=== PATIENT | female | born 1940 | race Caucasian/White ===

== ENCOUNTER 2016-08-30 18:50 | Observation (INO) | payer BC ==
--- NOTE | 2016-08-30 19:31 | EDPHY ---
H & P Time Seen by Provider: 08/30/16 19:30 HPI/ROS: Chief complaint. Fever, tachy HPI. 76-year-old female sore throat with chills and fever for 1 day. Seen at [facility] [place] apparently had a negative flu swab. Sent here because of continued tachycardia. Patient's only complaint is chills and sore throat. No known exposures. No cough. No abdominal pain vomiting diarrhea or urinary symptoms. ROS Constitutional. Fever Eyes. no problems with vision ENT. Sore throat Cardiovascular. no chest pain Respiratory. no shortness of breath, no cough Abdominal. no abdominal pain, no nausea/vomiting, no diarrhea . no problems urinating MS. no calf pain/swelling, no neck/back pain, no joint pain Skin. no rash Lymph. no swollen glands Neuro. no headache, no dizziness, no difficulty walking or with speech Past Medical/Surgical History: Past medical history is significant for left hip repair, melanoma, parathyroid disease, hysterectomy Social History: , nonsmoker, no alcohol Smoking Status: Never smoked Physical Exam: General Appearance: Alert well-developed female mild distress vital signs show temp 37.2degrees, heart rate 124 Eyes: Pupils equal and round no pallor or injection. ENT, tympanic membranes are normal. Pharynx injected without exudate. Respiratory: There are no retractions, lungs are clear to auscultation. Cardiovascular: Regular rate and rhythm. Gastrointestinal: Abdomen is soft and nontender, no masses, bowel sounds normal. Neurological: Awake and alert, sensory and motor exams grossly normal. Skin: Warm and dry, no rashes. Musculoskeletal: Neck is supple nontender. Extremities symmetrical, full range of motion. Psychiatric: Patient is oriented X 3, there is no agitation. Constitutional: Initial Vital Signs Temperature (C) 37.2 C 08/30/16 19:03 Heart Rate 124 H 08/30/16 19:03 Respiratory Rate 18 08/30/16 19:03 Blood Pressure 149/99 H 08/30/16 19:03 O2 Sat (%) 94 08/30/16 19:03 O2 Delivery Mode Room Air Allergies/Adverse Reactions: Penicillins Allergy (Verified 08/30/16 19:03) Home Medications: Medication Instructions Recorded NK [No Known Home Meds] 08/30/16 Medical Decision Making - Diagnostics Imaging: Chest x-ray shows no evidence for pneumonia. Procedures: IV normal saline. Tylenol for fever. Sepsis workup ED Course/Re-evaluation: Serum lactate is positive. Severe sepsis is declared now. The patient is given fluids. Re-evaluation the patient is stable. She and I discussed imaging, lab results treatment plan including recommendation for admission. Patient expresses understanding and agreement The patient on re-evaluation at 9:30 p.m. still has a heart rate of about 102- 103 after 1 L of saline. I have consulted and discussed the case with Dr. Santamaria, hospitalist, who agrees to the admission Differential Diagnosis: I suspect that this is viral syndrome. She apparently has a negative flu at the [facility] [place] and negative strep screen here. Her only complaint really is sore throat and some cough. She does not have pneumonia. Her elevated lactate maybe from dehydration. We will admit her and hydrate her and antibiotics pending blood cultures. - Data Points Laboratory Results: Laboratory Results 08/30/16 21:15 08/30/16 20:05 08/30/16 08/30/16 08/30/16 Unknown 21:15 21:15 WBC 11.68 10^3/uL H 10^3/uL (3.80-9.50) RBC 4.72 10^6/uL 10^6/uL (4.18-5.33) Hgb 12.5 g/dL L g/dL (12.6-16.3) Hct 38.5 % % (38.0-47.0) MCV 81.6 fL fL (81.5-99.8) MCH 26.5 pg L pg (27.9-34.1) MCHC 32.5 g/dL g/dL (32.4-36.7) RDW 14.7 % % (11.5-15.2) Plt Count 194 10^3/uL 10^3/uL (150-400) MPV 13.5 fL H fL (8.7-11.7) Neut % (Auto) 82.6 % H % (39.3-74.2) Lymph % (Auto) 9.2 % L % (15.0-45.0) Benson % (Auto) 6.8 % % (4.5-13.0) Eos % (Auto) 0.0 % L % (0.6-7.6) Baso % (Auto) 0.5 % % (0.3-1.7) Nucleat RBC Rel Count 0.0 % % (0.0-0.2) Absolute Neuts (auto) 9.64 10^3/uL H 10^3/uL (1.70-6.50) Absolute Lymphs (auto) 1.07 10^3/uL 10^3/uL (1.00-3.00) Absolute Monos (auto) 0.80 10^3/uL 10^3/uL (0.30-0.80) Absolute Eos (auto) 0.00 10^3/uL L 10^3/uL (0.03-0.40) Absolute Basos (auto) 0.06 10^3/uL 10^3/uL (0.02-0.10) Absolute Nucleated RBC 0.00 10^3/uL 10^3/uL (0-0.01) Immature Gran % 0.9 % % (0.0-1.1) Immature Gran # 0.11 10^3/uL H 10^3/uL (0.00-0.10) PT Pending INR Pending APTT Pending VBG Lactic Acid Sodium Potassium Chloride Carbon Dioxide Anion Gap BUN Creatinine Estimated GFR Glucose Calcium Total Bilirubin Group A Strep Screen Group A Strep DNA Pending 08/30/16 08/30/16 08/30/16 20:39 20:05 20:05 WBC RBC Hgb Hct MCV MCH MCHC RDW Plt Count MPV Neut % (Auto) Lymph % (Auto) Benson % (Auto) Eos % (Auto) Baso % (Auto) Nucleat RBC Rel Count Absolute Neuts (auto) Absolute Lymphs (auto) Absolute Monos (auto) Absolute Eos (auto) Absolute Basos (auto) Absolute Nucleated RBC Immature Gran % Immature Gran # PT INR APTT VBG Lactic Acid 2.5 mmol/L H mmol/L (0.7-2.1) Sodium 135 mEq/L mEq/L (134-144) Potassium 4.5 mEq/L mEq/L (3.5-5.2) Chloride 104 mEq/L mEq/L (97-110) Carbon Dioxide 21 mEq/l L mEq/l (22-31) Anion Gap 10 mEq/L mEq/L (8-16) BUN 12 mg/dL mg/dL (7-23) Creatinine 0.6 mg/dL mg/dL (0.6-1.0) Estimated GFR > 60 Glucose 116 mg/dL H mg/dL (70-100) Calcium 9.8 mg/dL mg/dL (8.5-10.4) Total Bilirubin 0.8 mg/dL mg/dL (0.1-1.4) Group A Strep Screen NEGATIVE (NEGATIVE) Group A Strep DNA Medications Given: Discontinued Medications Acetaminophen (Tylenol) 1,000 mg PO EDNOW ONE Stop: 08/30/16 19:46 Last Admin: 08/30/16 20:14 Dose: 1,000 mg Sodium Chloride (Ns) 1,000 mls @ 0 mls/hr IV ONCE ONE PRN Reason: Wide Open Stop: 08/30/16 20:15 Last Admin: 08/30/16 20:16 Dose: 1,000 mls Departure - Departure Disposition: Home, Routine, Self-Care Clinical Impression: Acute pharyngitis Qualifiers: Pharyngitis/tonsillitis etiology: unspecified etiology Qualified Code(s): J02.9 - Acute pharyngitis, unspecified Condition: Good Referrals: [facility] [Other] - As per Instructions
[2016-08-30] MEDS ORDERED: ACETAMINOPHEN 500 MG TAB PO ONE (19:45)
[2016-08-30] MEDS ORDERED: NS 1,000 ML IV ONE (20:14)
[2016-08-30 20:36] LABS: ANION GAP 10 mEq/L (8-16); BILIRUBIN,TOTAL 0.8 mg/dL (0.1-1.4); CALCIUM 9.8 mg/dL (8.5-10.4); CARBON DIOXIDE 21 mEq/l (22-31); CHLORIDE 104 mEq/L (97-110); CREATININE 0.6 mg/dL (0.6-1.0); GLOMERULAR FILTRATION RATE > 60; GLUCOSE 116 mg/dL (70-100); POTASSIUM 4.5 mEq/L (3.5-5.2); SODIUM 135 mEq/L (134-144)
[2016-08-30] MEDS ORDERED: NS 1,000 ML BAG *FOR SEPSIS ORDER SET ONLY IV ONE (21:07)
[2016-08-30 21:16] LABS: LACGHOST ORDER
[2016-08-30 21:28] LABS: % IMMATURE GRANULYOCYTES 0.9 % (0.0-1.1); ABSOLUTE IMMATURE GRANULOCYTES 0.11 10^3/uL (0.00-0.10); ADD DIFF? NO; ADD MORPH? NO; ADD SCAN? NO; ATYPICAL LYMPHOCYTE FLAG 10 (0-99); FRAGMENT RBC FLAG 0 (0-99); HEMATOCRIT 38.5 % (38.0-47.0); HEMOGLOBIN 12.5 g/dL (12.6-16.3); LEFT SHIFT FLG 0 (0-99); LIPEMIA HEMOLYSIS FLAG 80 (0-99); MEAN CELL HEMOGLOBIN 26.5 pg (27.9-34.1); MEAN CELL HEMOGLOBIN CONCENTR. 32.5 g/dL (32.4-36.7); MEAN CELL VOLUME 81.6 fL (81.5-99.8); MEAN PLATELET VOLUME 13.5 fL (8.7-11.7); PLATELET CLUMPS FLAG 0 (0-99); PLATELET COUNT 194 10^3/uL (150-400); RED BLOOD CELL COUNT 4.72 10^6/uL (4.18-5.33); RED CELL DISTRIBUTION WIDTH 14.7 % (11.5-15.2)
[2016-08-30 21:35] LABS: INR 1.05 (0.83-1.16); PROTIME(PATIENT) 13.6 SEC (12.0-15.0)
[2016-08-30 21:36] LABS: APTT 30.8 SEC (23.0-38.0)
[2016-08-30] MEDS ORDERED: ONDANSETRON 4 MG/2 ML VIAL IVP PRN (22:08)
[2016-08-30] MEDS ORDERED: ONDANSETRON DISINTEGRATING 4 MG TAB PO PRN (22:08)
[2016-08-30] MEDS ORDERED: ACETAMINOPHEN 325 MG TAB PO PRN (22:08)
[2016-08-30] MEDS ORDERED: NS 1,000 ML IV SCH (22:15)
[2016-08-30] MEDS ORDERED: Azelastine/Fluticasone [Dymista Nasal Spray] NS PRN (22:20)
--- NOTE | 2016-08-30 22:20 | PDGENHP ---
History and Physical - Chief Complaint fever, sore throat, tachycardia - History of Present Illness 76 yo female with no other past medical history presents to ED from urgent care with sore throat, fever and tachycardia. Her sore throat started yesterday with fevers to 102. She went to [facility] urgent care today where a flu swab was negative. Given her tachycardia, she was sent to the ED. She denies CP or SOB. No pleuritic symptoms. No cough or wheezing. She only complains of sore throat and some nasal symptoms. No sick contacts. She traveled here from [place] in Jun 2016 to help care for her son's twins who were recently born. She denies any past medical history. She had abnormal labs in the ED with persistent tachycardia and is admitted to the [facility] for further evaluation. History Information - Allergies/Home Medication List Allergies/Adverse Reactions: Penicillins Allergy (Verified 08/30/16 19:03) Home Medications: Azelastine/Fluticasone [Dymista Nasal [place]] 1 spray NS DAILY PRN 08/30/16 [ Last Taken 08/28/16] Calcium Carbonate [Tums 500MG (*)] 500 mg PO BID 08/30/16 [Last Taken 08/27/16] Cholecalciferol Vit D3 [Vitamin D3 (*)] 1,000 units PO BID 08/30/16 [Last Taken 08/27/16] Naproxen Sodium [Aleve 220 MG (*)] 220 mg PO DAILY PRN 08/30/16 [Last Taken ] I have personally reviewed and updated: family history, medical history, social history, surgical history - Past Medical History no pertinent PMH Additional medical history: melanoma right thumb 2007 - Surgical History Additional surgical history: parathyroidectomy, achilles tendon surgery, hip surgery, right thumb melanoma resection in 2007. 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 Speaks 4 languages (Armenian, Rwandan, Portuguese, Lithuanian). Came out to [place] from [place] to help care for her twin grandbabies Review of Systems ROS: 10pt was reviewed & negative except for what was stated in HPI & below Physical Exam Temp Pulse Resp BP Pulse Ox 37.2 C 106 H 18 135/72 H 92 08/30/16 19:03 08/30/16 21:10 08/30/16 21:10 08/30/16 21:10 08/30/16 21:10 Constitutional: no apparent distress Eyes: PERRL, other (mild posterior oropharynx erythema, no exudate or significant tonsillar hypertrophy) Ears, Nose, Mouth, Throat: moist mucous membranes, other (no cervical LAD) Cardiovascular: no murmur, rub, or gallop, tachycardia Respiratory: no respiratory distress, clear to auscultation Gastrointestinal: normoactive bowel sounds, soft, non-tender abdomen Skin: warm Musculoskeletal: full muscle strength Neurologic: AAOx3 Psychiatric: interacting appropriately Lab Data & Imaging Review 08/30/16 21:15 08/30/16 20:05 WBC 11.68 10^3/uL (3.80-9.50) H 08/30/16 21:15 RBC 4.72 10^6/uL (4.18-5.33) 08/30/16 21:15 Hgb 12.5 g/dL (12.6-16.3) L 08/30/16 21:15 Hct 38.5 % (38.0-47.0) 08/30/16 21:15 MCV 81.6 fL (81.5-99.8) 08/30/16 21:15 MCH 26.5 pg (27.9-34.1) L 08/30/16 21:15 MCHC 32.5 g/dL (32.4-36.7) 08/30/16 21:15 RDW 14.7 % (11.5-15.2) 08/30/16 21:15 Plt Count 194 10^3/uL (150-400) 08/30/16 21:15 MPV 13.5 fL (8.7-11.7) H 08/30/16 21:15 Neut % (Auto) 82.6 % (39.3-74.2) H 08/30/16 21:15 Lymph % (Auto) 9.2 % (15.0-45.0) L 08/30/16 21:15 Story % (Auto) 6.8 % (4.5-13.0) 08/30/16 21:15 Eos % (Auto) 0.0 % (0.6-7.6) L 08/30/16 21:15 Baso % (Auto) 0.5 % (0.3-1.7) 08/30/16 21:15 Nucleat RBC Rel Count 0.0 % (0.0-0.2) 08/30/16 21:15 Absolute Neuts (auto) 9.64 10^3/uL (1.70-6.50) H 08/30/16 21:15 Absolute Lymphs (auto) 1.07 10^3/uL (1.00-3.00) 08/30/16 21:15 Absolute Monos (auto) 0.80 10^3/uL (0.30-0.80) 08/30/16 21:15 Absolute Eos (auto) 0.00 10^3/uL (0.03-0.40) L 08/30/16 21:15 Absolute Basos (auto) 0.06 10^3/uL (0.02-0.10) 08/30/16 21:15 Absolute Nucleated RBC 0.00 10^3/uL (0-0.01) 08/30/16 21:15 Immature Gran % 0.9 % (0.0-1.1) 08/30/16 21:15 Immature Gran # 0.11 10^3/uL (0.00-0.10) H 08/30/16 21:15 PT 13.6 SEC (12.0-15.0) 08/30/16 21:15 INR 1.05 (0.83-1.16) 08/30/16 21:15 APTT 30.8 SEC (23.0-38.0) 08/30/16 21:15 VBG Lactic Acid 2.5 mmol/L (0.7-2.1) H 08/30/16 20:05 Sodium 135 mEq/L (134-144) 08/30/16 20:05 Potassium 4.5 mEq/L (3.5-5.2) 08/30/16 20:05 Chloride 104 mEq/L (97-110) 08/30/16 20:05 Carbon Dioxide 21 mEq/l (22-31) L 08/30/16 20:05 Anion Gap 10 mEq/L (8-16) 08/30/16 20:05 BUN 12 mg/dL (7-23) 08/30/16 20:05 Creatinine 0.6 mg/dL (0.6-1.0) 08/30/16 20:05 Estimated GFR > 60 08/30/16 20:05 Glucose 116 mg/dL (70-100) H 08/30/16 20:05 Calcium 9.8 mg/dL (8.5-10.4) 08/30/16 20:05 Total Bilirubin 0.8 mg/dL (0.1-1.4) 08/30/16 20:05 Group A Strep Screen NEGATIVE (NEGATIVE) 08/30/16 20:39 Assessment & Plan Assessment: Pharyngitis with reported fevers - Afebrile here. Suspect viral URI. Strep neg. She reportedly had a negative flu at [facility], but no data to confirm. Will check flu PCR here to be sure. Supportive care, anti-pyretics prn, gentle IVF' s. Tachycardia with mild hypoxemia - HR 124 on arrival, appears c/w sinus on monitor. No CP or SOB, but O2 sats are 90-93%. Well score is 1.5 for tachycardia, low risk, but need to r/o PE given her recent travel from [place]. Will start with D dimer and if positive, pursue CTPA. IVF's for hydration to see if HR improves. Elevated lactate - mild elevation. Despite her elevated HR, she does not meet SIRS criteria for sepsis with no obvious source of bacterial infection, WBC's < 12K, RR <20, T <38.3. Without clear bacterial infectious source, will defer atbx and monitor closely. Should she have any change in status, would reconsider atbx. Repeat lactate after hydration was normal. Full code Dispo - obs
[2016-08-31] MEDS: CEPACOL LOZENGE PO PRN ×2 (02:00→06:31)
[2016-08-31] MEDS: KETOROLAC 15 MG/1 ML SDV IVP SCH ×2 (06:22→11:36)
[2016-08-31 06:53] LABS: % IMMATURE GRANULYOCYTES 0.7 % (0.0-1.1); ABSOLUTE IMMATURE GRANULOCYTES 0.06 10^3/uL (0.00-0.10); ADD DIFF? NO; ADD MORPH? NO; ADD SCAN? NO; ATYPICAL LYMPHOCYTE FLAG 0 (0-99); FRAGMENT RBC FLAG 0 (0-99); HEMATOCRIT 34.6 % (38.0-47.0); HEMOGLOBIN 11.1 g/dL (12.6-16.3); LEFT SHIFT FLG 0 (0-99); LIPEMIA HEMOLYSIS FLAG 80 (0-99); MEAN CELL HEMOGLOBIN 26.6 pg (27.9-34.1); MEAN CELL HEMOGLOBIN CONCENTR. 32.1 g/dL (32.4-36.7); MEAN PLATELET VOLUME 13.6 fL (8.7-11.7); PLATELET CLUMPS FLAG 0 (0-99); PLATELET COUNT 170 10^3/uL (150-400); RED BLOOD CELL COUNT 4.17 10^6/uL (4.18-5.33); RED CELL DISTRIBUTION WIDTH 15.3 % (11.5-15.2)
[2016-08-31 11:33] VITALS: BP 111/62; PULSE 73; RESP 18; TEMP 98.2; O2SAT 93
--- NOTE | 2016-08-31 12:11 | HOSPPROG ---
Hospitalist Progress Note Assessment/Plan: 76 yo F w viral syndrome, resolved sepsis home today strep and flu neg see dc summary Subjective: afebrile. tachycardia resolved Objective: Vital Signs Temp Pulse Resp BP Pulse Ox 36.8 C 73 18 111/62 93 08/31/16 11:31 08/31/16 11:31 08/31/16 11:31 08/31/16 11:31 08/31/16 11:31 Laboratory Results 08/31/16 06:30 08/30/16 08/31/16 09/01/16 05:59 05:59 05:59 Intake Total 2200 Balance 2200 PT 13.6 SEC (12.0-15.0) 08/30/16 21:15 INR 1.05 (0.83-1.16) 08/30/16 21:15 - Physical Exam Constitutional: no apparent distress, appears nourished Eyes: PERRL, anicteric sclera Ears, Nose, Mouth, Throat: other (cant see throat 2/2 large tongue) Cardiovascular: regular rate and rhythym, no murmur, rub, or gallop, No tachycardia Respiratory: no respiratory distress, no rales or rhonchi Gastrointestinal: normoactive bowel sounds, soft, non-tender abdomen Genitourinary: no bladder fullness Skin: warm Musculoskeletal: full muscle strength Neurologic: AAOx3 Psychiatric: interacting appropriately ICD10 Worksheet Patient Problems: Problems Problem Status Onset Acute pharyngitis Acute
--- NOTE | 2016-08-31 17:41 | GDS ---
DISCHARGE DIAGNOSES: 1. Sepsis secondary to viral syndrome, now resolved. 2. Viral syndrome, manifested sore throat. 3. Sinus tachycardia, now resolved. HOSPITAL COURSE: Please see admission history and physical by Dr. Rhona Santamaria. The patient presented with fever, tachycardia, and sore throat. She was strep negative, although a confirmatory strep test is still pending. She was influenza negative. She had a chest x-ray with n o focal infiltrate, interpreted by me. She received IV hydration, no antibiotics, and then some ant ipyretics. The patient was feeling well, tolerating orals, and is going home today. /[id number]/MODL
== END 2016-08-31 13:04 | disposition home or self-care (01) ==
LOC: F1N 21:51
PROVIDERS: ADMIT Hospitalist; ATTEND Internal Medicine
DX: A41.9 Sepsis, unspecified organism (principal); B34.9 Viral infection, unspecified; Z85.820 Personal history of malignant melanoma of skin; Z88.0 Allergy status to penicillin
CPT/HCPCS: 71020; G0378; J1885